=== PATIENT | female | born 1950 | race Caucasian/White ===

== ENCOUNTER 2019-10-07 17:54 | Inpatient (IN) | payer OTHER ==
[~2019-10-07] VITALS: Ht 167.6 cm; Wt 72.1 kg
[2019-10-07 19:30] VITALS: BP 151/82
[2019-10-07] MEDS ORDERED: IRON325 M1 PO (19:49)
[2019-10-07] MEDS ORDERED: NEURONTIN100 MG PO ×2 (19:53→19:58)
[2019-10-07] MEDS ORDERED: SIMVASTATIN80 MG PO (19:59)
[2019-10-07 20:23] VITALS: BP 131/72
[2019-10-08 08:31] VITALS: BP 124/81
[2019-10-08 20:41] VITALS: BP 123/67
[2019-10-09 08:21] VITALS: BP 124/78
[2019-10-09 19:28] VITALS: BP 136/78
[2019-10-09 22:06] VITALS: BP 136/78
[2019-10-10 08:45] VITALS: BP 123/77
[2019-10-10 19:20] VITALS: BP 130/82
[2019-10-10 20:00] VITALS: BP 130/82
[2019-10-11 07:48] VITALS: BP 104/65
[2019-10-11 19:27] VITALS: BP 129/84
[2019-10-11 22:09] VITALS: BP 129/84
[2019-10-12 08:53] VITALS: BP 102/72
[2019-10-12 10:12] VITALS: BP 102/72
[2019-10-12 19:04] VITALS: BP 120/68
[2019-10-13 09:22] VITALS: BP 118/78
[2019-10-13] MEDS ORDERED: NEURONTIN 300300 M1 PO (09:33)
[2019-10-13] MEDS ORDERED: ALPRAZOLAM 0.0.25 M1 PO (09:33)
[2019-10-13 09:52] VITALS: BP 118/78
== END 2019-10-13 10:05 | disposition home or self-care (01) | DRG 885 ==
LOC: SBH
PROVIDERS: ADMIT Psychiatry & Neurology Psychiatry
DX: F39 Unspecified mood [affective] disorder (principal); F32.2 Major depressive disorder, single episode, severe without psychotic features; R45.851 Suicidal ideations; F41.9 Anxiety disorder, unspecified; G89.4 Chronic pain syndrome; M19.90 Unspecified osteoarthritis, unspecified site; G47.00 Insomnia, unspecified; E78.5 Hyperlipidemia, unspecified; Z88.8 Allergy status to other drugs, medicaments and biological substances; Z91.040 Latex allergy status; Z79.891 Long term (current) use of opiate analgesic; Z81.8 Family history of other mental and behavioral disorders
CPT/HCPCS: 10880